=== PATIENT | male | born 1985 | race African-American/Black ===

== ENCOUNTER 2019-09-09 21:25 | Emergency (ER) | payer BC ==
[2019-09-09] MEDS ORDERED: LIDOCAINE 1% MPF 5 ML VIAL ONE (22:05)
[2019-09-09] MEDS ORDERED: BUPIVACAINE 0.5% PF 10 ML VIAL ONE (22:05)
[2019-09-09] MEDS ORDERED: TETANUS & DIPHTHERIA TOX,ADULT 0.5 ML VIAL ONE (22:23)
[2019-09-09] MEDS ORDERED: IBUPROFEN 400 MG TAB ONE (22:23)
--- NOTE | 2019-09-09 22:56 | EDPHYS ---
Physician Documentation [facility] Name: Delta Barlow Age: 34 yrs Sex: Male : 1985 Arrival Date: 09/09/2019 Time: 21:28 Bed 13 Private MD: ED Physician Berny Delong HPI: 09/08 22:04 This 34 yrs old Male presents to ER via Ambulatory with complaints of Laceration To kb Finger. 22:04 The patient has a laceration related to: doing yard work, cut on city council member, occurred kb at home, and there are no complicating factors. The injury was accidental. The laceration(s) is(are) located on the palmar aspect of middle phalanx of right index finger. Onset: The symptoms/episode began/occurred just prior to arrival. Associated signs and symptoms: The patient has no apparent associated signs or symptoms. The patient has not experienced similar symptoms in the past. The patient has not recently seen a physician. Historical: - Allergies: 21:44 No Known Allergies; ll1 - PSHx: 21:44 None; ll1 - Immunization history:: Last tetanus immunization: > 10 years ago. - Social history:: Patient/guardian denies using alcohol, street drugs, tobacco products. ROS: 22:03 Constitutional: Negative for fever, chills, and weight loss, Cardiovascular: Negative kb for chest pain, palpitations, and edema, Respiratory: Negative for shortness of breath, cough, wheezing, and pleuritic chest pain, Abdomen/GI: Negative for abdominal pain, nausea, vomiting, diarrhea, and constipation, MS/Extremity: Negative for injury and deformity, Neuro: Negative for headache, weakness, numbness, tingling, and seizure. 22:03 Skin: Positive for laceration(s), of the palmar aspect of middle phalanx of right index finger. Exam: 22:03 Constitutional: This is a well developed, well nourished patient who is awake, alert, kb and in no acute distress. Head/Face: Normocephalic, atraumatic. Chest/axilla: Normal chest wall appearance and motion. Nontender with no deformity. No lesions are appreciated. Cardiovascular: Regular rate and rhythm with a normal S1 and S2. No gallops, murmurs, or rubs. Normal PMI, no JVD. No pulse deficits. Respiratory: Lungs have equal breath sounds bilaterally, clear to auscultation and percussion. No rales, rhonchi or wheezes noted. No increased work of breathing, no retractions or nasal flaring. Abdomen/GI: Soft, non-tender, with normal bowel sounds. No distension or tympany. No guarding or rebound. No evidence of tenderness throughout. MS/ Extremity: Pulses equal, no cyanosis. Neurovascular intact. Full, normal range of motion. Neuro: Awake and alert, GCS 15, oriented to person, place, time, and situation. Cranial nerves II-XII grossly intact. Motor strength 5/5 in all extremities. Sensory grossly intact. Cerebellar exam normal. Normal gait. 22:03 Skin: injury, laceration(s), the wound is approximately 2 cm(s), of the palmar aspect of middle phalanx of right index finger, that can be described as clean, no foreign body, linear, without bleeding. Vital Signs: 21:42 BP 125 / 85; Pulse 67; Resp 18; Temp 98.4; Pulse Ox 100% ; Pain 6/10; ll1 23:00 BP 116 / 79; Pulse 59; Resp 18; Pulse Ox 99% on R/A; vc Procedures: 22:02 Nerve block: (digital) of palmar aspect of proxima; phalanx of right index finger kb Medication: Lidocaine 1% without epinephrine Marcaine 0.5%, Amount: 5 mls were injected, Effect: the patient has resolution of the pain, Set up for procedure. Performed by Greta BERNARD Patient tolerated well. Laceration: 22:54 Wound Repair of 2cm ( 0.8in ) subcutaneous laceration to palmar aspect of middle kb phalanx of right index finger. Linear shaped.. Distal neuro/vascular/tendon intact. Anesthesia: Digital block administered with 1% lidocaine. Wound prep: Extensive cleansing with hibiclenz by me, Wound irrigation with saline by me. Skin closed with 5 5-0 Prolene using simple sutures and sterile technique. Patient tolerated well. MDM: 21:44 Patient medically screened. kb 22:02 Data reviewed: vital signs, nurses notes. Data interpreted: Pulse oximetry: on room air kb is 100 %. Interpretation: normal. Counseling: I had a detailed discussion with the patient and/or guardian regarding: the historical points, exam findings, and any diagnostic results supporting the discharge/admit diagnosis, the need for outpatient follow up, a family practitioner, to return to the emergency department if symptoms worsen or persist or if there are any questions or concerns that arise at home. 09/08 21:48 Order name: Prolene, Sutures; Complete Time: 22:53 kb 09/08 21:48 Order name: Dressing - Wound; Complete Time: 22:53 kb 09/08 21:48 Order name: Gloves, Sterile; Complete Time: 22:53 kb 09/08 21:48 Order name: Setup Suture Tray; Complete Time: 22:54 kb 09/08 22:55 Order name: Finger Splint; Complete Time: 23:05 kb Administered Medications: 22:00 Drug: Bupivacaine (0.5 %) 1 vials Volume: 10 ml; Route: Infiltration; vc 22:00 Drug: Lidocaine (1 %) 1 vials Volume: 5 ml; Route: Infiltration; vc 22:25 Drug: Tetanus-Diphtheria Toxoid Adult 0.5 ml {Housekeeper Head: [employer]. Exp: vc 05/19/2021. Lot #: [id number]. } Route: IM; Site: right deltoid; 22:52 Follow up: Response: No adverse reaction vc 22:25 Drug: Ibuprofen 800 mg Route: PO; vc 22:52 Follow up: Response: No adverse reaction; Pain is decreased vc Disposition: 09/09 06:22 Co-signature as Attending Physician, Berny Delong MD. 7 Disposition: 09/09/19 22:56 Discharged to Home. Impression: Laceration without foreign body of right index finger without damage to nail. - Condition is Stable. - Discharge Instructions: Laceration Care, Adult, [id number]. - Medication Reconciliation Form, Thank You Letter, Antibiotic Education, Prescription Opioid Use form. - Follow up: Emergency Department; When: As needed; Reason: Worsening of condition. Follow up: Private Physician; When: 2 - 3 days; Reason: Recheck today's complaints, Continuance of care, Re-evaluation by your physician. Signatures: Greta Alexandre, JOSEPH-C JOSEPH-CkPam Sofia RN RN vc Lewis, Lynsay, RN RN [facility] Berny Delong MD MD [facility] Corrections: (The following items were deleted from the chart) 09/08 23:09 22:56 09/09/2019 22:56 Discharged to Home. Impression: Laceration without foreign body vc of right index finger without damage to nail. Condition is Stable. Forms are Medication Reconciliation Form, Thank You Letter, Antibiotic Education, Prescription Opioid Use. Follow up: Emergency Department; When: As needed; Reason: Worsening of condition. Follow up: Private Physician; When: 2 - 3 days; Reason: Recheck today's complaints, Continuance of care, Re-evaluation by your physician. kb
--- NOTE | 2019-09-09 22:56 | ER ---
Nurse's Notes [facility] Name: Delta Barlow Age: 34 yrs Sex: Male : 1985 Arrival Date: 09/09/2019 Time: 21:28 Bed 13 Private MD: Diagnosis: Laceration without foreign body of right index finger without damage to nail Presentation: 09/07 21:45 Initial Sepsis Screen: Does the patient have a suspected source of infection? Yes: Skin vc breakdown/wound. 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 Laceration to right hand 2nd digit. Dressing in place. States he needs a tetanus shot. Coronavirus screen: Proceed with normal triage. Patient denies a cough. Patient denies shortness of breath or difficulty breathing. Patient denies measured and/or subjective temperature greater than 100.4F prior to today's visit. Patient denies travel on a cruise ship or to a country the [facility] currently lists as an affected area. Patient denies contact with known and/or suspected case of COVID-19. Ebola Screen: Patient denies travel to an Ebola-affected area in the 21 days before illness onset. Initial Sepsis Screen: Does the patient meet any 2 criteria? No. Patient's initial sepsis screen is negative. Risk Assessment: Do you want to hurt yourself or someone else? Patient reports no desire to harm self or others. Onset of symptoms was September 09, 2019. 21:42 Method Of Arrival: Ambulatory ll1 21:42 Acuity: MOHINDER 4 ll1 Triage Assessment: 21:45 General: Appears in no apparent distress. uncomfortable, Behavior is calm, cooperative, vc appropriate for age. Pain: Complains of pain in palmar aspect of middle phalanx of right index finger. Historical: - Allergies: 21:44 No Known Allergies; ll1 - PSHx: 21:44 None; ll1 - Immunization history:: Last tetanus immunization: > 10 years ago. - Social history:: Patient/guardian denies using alcohol, street drugs, tobacco products. Screenin:45 Abuse screen: Denies threats or abuse. Nutritional screening: No deficits noted. vc Tuberculosis screening: No symptoms or risk factors identified. Fall Risk None identified. Assessment: 21:45 General: Appears in no apparent distress. comfortable, Behavior is calm, cooperative, vc appropriate for age. Pain: Complains of pain in palmar aspect of middle phalanx of right index finger Pain currently is 6 out of 10 on a pain scale. Neuro: Level of Consciousness is awake, alert, obeys commands, Oriented to person, place, time. Cardiovascular: Capillary refill < 3 seconds Patient's skin is warm and dry. Respiratory: Airway is patent Respiratory effort is even, unlabored, Respiratory pattern is regular, symmetrical. GI: No signs and/or symptoms were reported involving the gastrointestinal system. : No signs and/or symptoms were reported regarding the genitourinary system. Derm: Wound noted palmar aspect of middle phalanx of right index finger. 22:45 Reassessment: Patient appears in no apparent distress at this time. Patient and/or vc family updated on plan of care and expected duration. Pain level reassessed. Patient is alert, oriented x 3, equal unlabored respirations, skin warm/dry/pink. Patient states symptoms have improved. Vital Signs: 21:42 BP 125 / 85; Pulse 67; Resp 18; Temp 98.4; Pulse Ox 100% ; Pain 6/10; ll1 23:00 BP 116 / 79; Pulse 59; Resp 18; Pulse Ox 99% on R/A; vc ED Course: 21:28 Patient arrived in ED. cl3 21:43 Triage completed. ll1 21:44 Greta Alexandre [facility]NP-C [facility]. kb 21:44 Berny Delong MD is Attending Physician. kb 21:44 Arm band placed on Patient placed in an exam room, on a stretcher. ll1 21:45 Patient has correct armband on for positive identification. Bed in low position. Pulse vc ox on. NIBP on. 22:12 Pam Quintanilla RN is Primary Nurse. vc 22:40 Assist provider with laceration repair on palmar aspect of middle phalanx of right vc index finger that was 2.5 cm. or less using sutures. Set up tray. Performed by Greta BERNARD Dressed with finger splint and mami wrap. 23:00 Patient did not have IV access during this emergency room visit. vc Administered Medications: 22:00 Drug: Bupivacaine (0.5 %) 1 vials Volume: 10 ml; Route: Infiltration; vc 22:00 Drug: Lidocaine (1 %) 1 vials Volume: 5 ml; Route: Infiltration; vc 22:25 Drug: Tetanus-Diphtheria Toxoid Adult 0.5 ml {Insurance Follow Up Representative: [employer]. Exp: vc 05/19/2021. Lot #: [id number]. } Route: IM; Site: right deltoid; 22:52 Follow up: Response: No adverse reaction vc 22:25 Drug: Ibuprofen 800 mg Route: PO; vc 22:52 Follow up: Response: No adverse reaction; Pain is decreased vc Outcome: 22:56 Discharge ordered by . jo ann 23:08 Discharged to home ambulatory. vc 23:08 Condition: improved 23:08 Discharge instructions given to patient, Instructed on discharge instructions, follow up and referral plans. Demonstrated understanding of instructions, follow-up care. 23:09 Patient left the ED. vc Signatures: Greta Alexandre, EQUAL OPPORTUNITY OFFICER-C EQUAL OPPORTUNITY OFFICER-Marco Ledbetter cl3 Pam Quintanilla RN RN vc Audi Galvez RN RN ll1 Corrections: (The following items were deleted from the chart) 23:04 23:01 General: Appears in no apparent distress. comfortable, Behavior is calm, vc cooperative, appropriate for age, vc 23:04 23:01 Pain: Complains of pain in palmar aspect of middle phalanx of right index finger vc Pain currently is 6 out of 10 on a pain scale. vc 23:04 23:01 Neuro: Level of Consciousness is awake, alert, obeys commands, Oriented to vc person, place, time, vc 23:04 23:01 Cardiovascular: Capillary refill < 3 seconds Patient's skin is warm and dry. vc vc 23:04 23:01 Respiratory: Airway is patent Respiratory effort is even, unlabored, Respiratory vc pattern is regular, symmetrical, vc 23:04 23:01 GI: No signs and/or symptoms were reported involving the gastrointestinal system. vc vc 23:04 23:01 : No signs and/or symptoms were reported regarding the genitourinary system. vc vc 23:04 23:01 Derm: Wound noted palmar aspect of middle phalanx of right index finger vc vc
[2019-09-09 23:31] VITALS: TEMP 98.4
[2019-09-09 23:43] VITALS: BP 116/79; O2SAT 99
== END 2019-09-09 23:09 | disposition home or self-care (01) ==
LOC: ER 21:25
PROC: 0JQJ0ZZ Repair Right Hand Subcutaneous Tissue and Fascia, Open Approach (ICD-10-PCS; principal; 2019-09-09)
DX: S61.210A Laceration without foreign body of right index finger without damage to nail, initial encounter (principal); W31.89XA Contact with other specified machinery, initial encounter; Y93.H9 Activity, other involving exterior property and land maintenance, building and construction; Y92.007 Garden or yard of unspecified non-institutional (private) residence as the place of occurrence of the external cause; Z23 Encounter for immunization
CPT/HCPCS: 64450; 90471; 90714; 99283